=== PATIENT | male | born 1955 | race Caucasian/White ===

== ENCOUNTER 2017-11-05 23:19 | Emergency (ER) | payer SELFPAY ==
[~2017-11-05] VITALS: Ht 172.7 cm; Wt 88.8 kg
[2017-11-06 00:46] LABS: BASOPHIL (%) 0.1 % (0-1); EOSINOPHIL (%) 0.4 % (0-5); HEMATOCRIT 36.2 % (38.0-50.0); HEMOGLOBIN 12.5 G/DL (12.5-16.6); IMMATURE GRANULOCYTE (%) 0.4 % (0.0-0.7); LYMPHOCYTE (%) 6.8 % (15-42); LYMPHOCYTE COUNT 0.5 K/uL (1.0-2.8); MCHC 34.5 G/DL (30.0-36.0); MCV 89.8 FL (86-99); MONOCYTE (%) 5.2 % (3-12); MONOCYTE COUNT 0.4 K/uL (0-0.8); NEUTROPHIL (%) 87.1 % (45-76); NEUTROPHIL COUNT 5.9 K/uL (1.8-6.4); PLATELET COUNT 274 K/uL (156-360); RBC DIS.WIDTH-SD 39.9 % (39-53); RED BLOOD COUNT 4.03 M/uL (4.00-5.50); WHITE BLOOD COUNT 6.8 K/uL (4.1-10.2)
[2017-11-06 00:57] LABS: CHLORIDE 110 mEq/L (99-109); POTASSIUM 3.7 mEq/L (3.7-5.4); SODIUM 140 mEq/L (136-147)
[2017-11-06 00:59] LABS: GLUCOSE 165 mg/dL (70-99)
[2017-11-06 01:03] LABS: GFR ESTIMATE (CALCULATED) > 59 mL/min/ (58.99-99999)
[2017-11-06 01:04] LABS: UREA NITROGEN (BUN) 18 mg/dL (9-23)
[2017-11-06 02:41] LABS: APPEARANCE CLEAR ((CLEAR)); BILIRUBIN NEGATIVE; BLOOD SMALL; COLOR COLORLESS ((YELLOW)); GLUCOSE (STRIP) NEGATIVE; KETONES NEGATIVE; LEUKOCYTES NEGATIVE; NITRITE NEGATIVE; PROTEIN (STRIP) NEGATIVE; SPECIFIC GRAVITY 1.004 (1.000-1.030); UROBILINOGEN 0.2 MG/DL (0.2-1.0)
[2017-11-06 02:44] LABS: BACTERIA NONE SEEN /HPF; EPITHELIAL CELLS NONE SEEN /HPF; MUCUS NONE SEEN /LPF; RED BLOOD CELLS 0-5 /HPF (0-5); UCUL ADDED? NO; WHITE BLOOD CELLS 0-5 /HPF (0-5)
[2017-11-06] MEDS ORDERED: PEPCID20 MG PO (02:58)
[2017-11-06] MEDS ORDERED: MOTRIN600 MG PO (02:58)
[2017-11-06] MEDS ORDERED: BENADRYL50 MG PO (02:58)
[2017-11-06 03:26] VITALS: BP 148/71
== END 2017-11-06 03:28 | disposition home or self-care (01) ==
LOC: EME 23:19
PROVIDERS: Emergency Medicine
DX: J06.9 Acute upper respiratory infection, unspecified (principal); L30.9 Dermatitis, unspecified; R13.10 Dysphagia, unspecified
CPT/HCPCS: 80048; 81003; 85025; 87651 90; 99281; 99285; J1100; J1200; S0028

== ENCOUNTER 2017-11-09 09:24 | Emergency (ER) | payer SELFPAY ==
[~2017-11-09] VITALS: Ht 172.7 cm; Wt 88.7 kg
[~2017-11-09 09:24] MED LIST: BENADRYL50 MG PO; MOTRIN600 MG PO; PEPCID20 MG PO
[2017-11-09 10:09] LABS: HEMATOCRIT 37.9 % (38.0-50.0); MCH 30.8 PG (29.0-34.0); MCHC 34.3 G/DL (30.0-36.0); MCV 89.8 FL (86-99); PLATELET COUNT 316 K/uL (156-360); RBC DIS.WIDTH-CV 12.2 % (11.8-14.6); RBC DIS.WIDTH-SD 39.8 % (39-53); RED BLOOD COUNT 4.22 M/uL (4.00-5.50); WHITE BLOOD COUNT 7.6 K/uL (4.1-10.2)
[2017-11-09 10:10] LABS: BASOPHIL (%) 0.1 % (0-1); EOSINOPHIL (%) 0.9 % (0-5); EOSINOPHIL COUNT 0.1 K/uL (0-0.3); IMMATURE GRANULOCYTE (%) 0.3 % (0.0-0.7); LYMPHOCYTE (%) 6.7 % (15-42); LYMPHOCYTE COUNT 0.5 K/uL (1.0-2.8); MONOCYTE (%) 2.4 % (3-12); MONOCYTE COUNT 0.2 K/uL (0-0.8); NEUTROPHIL (%) 89.6 % (45-76); NEUTROPHIL COUNT 6.8 K/uL (1.8-6.4)
[2017-11-09 10:19] LABS: CHLORIDE 108 mEq/L (99-109); POTASSIUM 3.7 mEq/L (3.7-5.4); SODIUM 139 mEq/L (136-147)
[2017-11-09 10:21] LABS: GLUCOSE 127 mg/dL (70-99)
[2017-11-09 10:25] LABS: CREATININE 0.9 mg/dL (0.6-1.3); GFR ESTIMATE (CALCULATED) > 59 mL/min/ (58.99-99999)
[2017-11-09 10:26] LABS: UREA NITROGEN (BUN) 13 mg/dL (9-23)
[2017-11-09] MEDS ORDERED: PREDNISONE50 MG PO (12:26)
[2017-11-09 12:52] VITALS: BP 151/90
== END 2017-11-09 13:01 | disposition home or self-care (01) ==
LOC: EME 09:24
PROVIDERS: Emergency Medicine
DX: T78.40XA Allergy, unspecified, initial encounter (principal); X58.XXXA Exposure to other specified factors, initial encounter; L50.9 Urticaria, unspecified; R22.0 Localized swelling, mass and lump, head
CPT/HCPCS: 80048; 85025; 99281; 99285; J2930; S0028